=== PATIENT | female | born 1990 | race Caucasian/White ===

== ENCOUNTER 2017-05-22 12:54 | Outpatient (CLI) | payer BC ==
[2017-05-22] MEDS ORDERED: Iopamidol 370 76% 100 ML VIAL ONE (16:30)
== END 2017-05-22 12:55 | disposition home or self-care (01) ==
LOC: BICCT 12:54
PROVIDERS: ATTEND Neurological Surgery
DX: R22.1 Localized swelling, mass and lump, neck (principal); M62.89 Other specified disorders of muscle
CPT/HCPCS: 70491; 71260

== ENCOUNTER 2018-03-18 07:15 | Outpatient (CLI) | payer BC ==
--- NOTE | 2018-03-18 12:38 | NM ---
HEPATOBILIARY SCAN: HISTORY: Abdominal pain. RADIOPHARMACEUTICAL: Technetium 99m mebrofenin 4.8 millicuries injected intravenously. FINDINGS: There is good tracer extraction by liver with prompt excretion into the biliary tract and small bowel loops and normal filling of the gallbladder. The calculated gallbladder ejection fraction following an oral fatty meal measured 66%. IMPRESSION: Normal examination. POS: [facility]
== END 2018-03-18 07:16 | disposition home or self-care (01) ==
LOC: NM 07:15
PROVIDERS: ATTEND Internal Medicine Gastroenterology
DX: R10.9 Unspecified abdominal pain (principal)
CPT/HCPCS: 78227; A9537

== ENCOUNTER 2018-04-02 07:29 | Outpatient (CLI) | payer BC, OTHER ==
--- NOTE | 2018-04-02 08:11 | ULT ---
ULTRASOUND ABDOMEN: HISTORY: Abdominal pain. FINDINGS: The liver, spleen, gallbladder, pancreas, kidneys, and visualized portions of the abdominal aorta and IVC appear normal. No free fluid is seen. The common duct measures 2 mm in diameter. IMPRESSION: Normal exam. POS: [facility]
== END 2018-04-02 07:30 | disposition home or self-care (01) ==
LOC: BICULT 07:29
PROVIDERS: ATTEND Internal Medicine Gastroenterology
DX: R10.9 Unspecified abdominal pain (principal)
CPT/HCPCS: 76700

== ENCOUNTER 2019-10-13 12:58 | Outpatient (CLI) | payer OTHER ==
--- NOTE | 2019-10-13 15:50 | CT ---
Exam: Thoracic spine CT without contrast HISTORY: T8 pain x6 years COMPARISON: 12/10/2015 Correlation: Thoracic spine MRI 09/06/2019 FINDINGS: 12 thoracic type vertebra. Thoracic spine vertebral body height is maintained. No fracture. No spondy lolisthesis or spondylolysis. Appropriate attenuation visualized lung parenchyma, mediastinum and abdomen No abnormal attenuation in the paraspinal muscles Throughout the thoracic spine, there is no significant central canal stenosis or significant neural f oraminal narrowing. At the T8 vertebral body, there is no abnormal trabeculation. No abnormal attenuation in the pedicles or facets. No lytic or blastic lesions. IMPRESSION: No CT abnormality at the T8 level.
== END 2019-10-13 12:59 | disposition home or self-care (01) ==
LOC: SCSCT 12:58 → MERGE 13:00
PROVIDERS: ATTEND Family Medicine
DX: M51.9 Unspecified thoracic, thoracolumbar and lumbosacral intervertebral disc disorder (principal)
CPT/HCPCS: 72128

== ENCOUNTER 2020-12-29 12:19 | Outpatient (CLI) | payer OTHER ==
[~2020-12-29 12:19] MED LIST: Magnevist 469MG/ML 20 ML VIAL ONE
== END 2020-12-29 12:20 | disposition home or self-care (01) ==
LOC: BICMRI 12:19
PROVIDERS: ATTEND Neurological Surgery
DX: D36.10 Benign neoplasm of peripheral nerves and autonomic nervous system, unspecified (principal); M51.86 Other intervertebral disc disorders, lumbar region
CPT/HCPCS: 70553; 72156; 72157; 72158; A9579